=== PATIENT | female | born 1985 | race Asian ===

== ENCOUNTER → 2024-09-15 | Emergency (ER) | payer OTHER ==
[~2024-09-15] VITALS: Ht 175.3 cm; Wt 120.2 kg
[2024-09-15 17:31] VITALS: TEMP 97.9
[2024-09-15 17:55] VITALS: BP 136/80; O2SAT 97
== END | disposition home or self-care (01) ==
LOC: ER 17:31
DX: S09.90XA Unspecified injury of head, initial encounter (principal); R42 Dizziness and giddiness; R51.9 Headache, unspecified; W10.8XXA Fall (on) (from) other stairs and steps, initial encounter; Y93.89 Activity, other specified; Y92.89 Other specified places as the place of occurrence of the external cause; Y99.8 Other external cause status